=== PATIENT | male | born 1950 | race African-American/Black ===

== ENCOUNTER → 2017-02-23 | Outpatient (CLI) | payer BC, MEDICARE ==
[2016-09-19 11:00] VITALS: BP 144/83
[~2017-02-23] MED LIST: ATOR40TA59 PO; GADOBUTROL 10 MMOL/10 ML VIAL IV ONE; HYDR-2679 PO; LEVO500T38 PO; LOSA50TA6 PO; METR500T PO; OXYB5TAB7 PO
--- NOTE | 2017-02-23 09:49 | KCIC ---
PROCEDURE Brain MRI with and without contrast. HISTORY Intractable headache. TECHNIQUE Multiplanar and multi sequence magnetic resonance imaging of the brain was performed prior to and following the administration of 10 cc Gadavist intravenous contrast. COMPARISON None. FINDINGS There is no restricted diffusion to suggest acute or subacute infarction. There is no susceptibility effect to suggest hemorrhage. There is no mass effect or midline shift. There is no hydrocephalus. There are few tiny foci of T2/FLAIR hyperintensity within the cerebral white matter, a nonspecific finding. The orbits are unremarkable. There is mild paranasal sinus mucosal thickening. There is a small air-fluid level within the left aspect of the sphenoid sinus. The mastoid air cells are clear. There are normal flow voids within the cerebral vessels. There is slight cerebellar tonsillar ectopia, not clearly within limits to suggest a Chiari 1 malformation. No enhancing lesion is seen. IMPRESSION 1. No acute intracranial finding. 2. Few tiny foci of signal change within the cerebral white matter, a nonspecific finding. The differential includes etiologies such as chronic small vessel disease and chronic migraine headaches. 3. Mild paranasal sinus mucosal thickening with small sphenoid sinus air-fluid level. 4. Mild cerebellar tonsillar ectopia, not clearly within limits to suggest a Chiari 1 malformation. Electronically signed by: Adri Nassar (Feb 23, 2017 09:48:18)
== END | disposition home or self-care (01) ==
LOC: KCIC MRI 08:35
PROVIDERS: ATTEND Family Medicine
DX: R51 Headache (principal); I10 Essential (primary) hypertension
CPT/HCPCS: 70553; A9585